=== PATIENT | male | born 1965 | race Caucasian/White ===

== ENCOUNTER 2025-07-29 09:27 | Outpatient (REF) | payer OTHER, SELFPAY ==
[2025-07-29 13:13] LABS: MANUAL DIFF FLAG NO
[2025-07-29 13:17] LABS: Hematocrit 49.9 % (42.0-52.0); Hemoglobin 17.6 g/dl (14.0-18.0); Imm Gran Abs Auto 0.02 X10*3/uL (0.00-0.03); Imm Gran Pct Auto 0.2 % (0.0-0.4); Lymphocytes Absolute Auto 1.7 X10*3/uL (1.2-4.9); Mean Corpuscular HGB Conc 35.3 g/dl (31.0-36.0); Mean Corpuscular Hemoglobin 31.7 pg (27.0-33.0); Mean Corpuscular Volume 89.9 fL (80.0-98.0); NRBC Abs Auto 0.000 X10*3/uL (0.0-0.012); NRBC Pct Auto 0.0 /100WBC (0.0-0.2); Platelet Count 236 X10*3/uL (160-400); Red Blood Count 5.55 X10*6/uL (4.60-5.80); White Blood Count 8.1 X10*3/uL (4.8-10.8)
[2025-07-29 13:34] LABS: Cannabinoid Screen Urine Not Detected (Not Detect)
[2025-07-29 13:38] LABS: Alanine Aminotransferase 33 U/L (0-40); Albumin Level 4.7 g/dL (3.5-5.0); Alkaline Phosphatase 69 U/L (39-117); Anion Gap 15 (12-20); Aspartate Amino Transferase 31 U/L (5-37); Blood Urea Nitrogen 13 mg/dL (9-16); Calcium 10.2 mg/dL (8.4-10.2); Carbon Dioxide 30 mmol/L (22-29); Chloride 99 mmol/L (96-108); Estimated Glomerular Filt Rate > 60; Potassium 3.7 mmol/L (3.3-5.1); Sodium 140 mmol/L (135-145); Total Protein 7.7 g/dL (6.5-8.0)
[2025-07-29 13:52] LABS: Microalbum/Creatinine Ratio Ur 13.3 ug/mg cr (<30)
[2025-07-29 13:55] LABS: PSA,Total (Free>4and<10) 0.70 ng/mL (0.00-4.00)
== END 2025-07-29 09:28 | disposition home or self-care (01) ==
LOC: HO.10HDL 09:27
PROVIDERS: PCP Internal Medicine; Visit Provider Internal Medicine
DX: M25.512 Pain in left shoulder (principal); G89.29 Other chronic pain; I10 Essential (primary) hypertension; R73.01 Impaired fasting glucose; B00.9 Herpesviral infection, unspecified; Z12.5 Encounter for screening for malignant neoplasm of prostate; Z79.899 Other long term (current) drug therapy
CPT/HCPCS: 36415; 80053; 80307; 82043; 82306; 82570; 83036; 83721; 84153; 84443; 85025; 96127; 99212

== ENCOUNTER 2025-07-29 09:27 | Outpatient (AMB) | payer OTHER, SELFPAY ==
--- NOTE | 2025-07-29 09:30 | A.OFFPC_ITS ---
Vital Signs 07/29/25 09:31 07/29/25 09:40 Height 5 ft 9.75 in Weight 203 lb BMI 29.3 BP 130/90 H 124/78 Blood Pressure Location Rt brachial Lt brachial Position Sitting Sitting Respiration 16 Pulse 93 Pulse Source Pulse Oximeter Temp 97.3 F Temp Source Temporal Artery Scan Pulse Oximetry (%) 97 Oxygen Delivery Method Room Air Intake Visit Reasons: establish care here. Litigation Counsel Required: No Accompanied by: Self / Same As Patient Allergies naproxen (From Naprosyn) Adverse Reaction (Intermediate, Verified 07/29/25 09:30) Hives Medication List - Last Reconciled 07/29/25 by Lashell Pretty MD amlodipine 10 mg PO DAILY atenolol 50 mg PO DAILY gabapentin 1,200 mg PO TID indapamide 2.5 mg PO QAM mupirocin 2% topical PRN nortriptyline 25 - 50 mg PO BEDTIME omeprazole 40 mg PO DAILY oxycodone 5 mg PO TID PRN trazodone 100 mg PO BEDTIME PRN valacyclovir 2,000 mg PO Q12H PRN Tobacco use date assessed: 07/29/25 Dental Screening Dental Screen Date: 07/29/25 Did you have a dental visit in the last 12 months?: Yes Did you have a dental problem in the last 6 months where you did not have access to dental care?: No Was dental information given to patient?: Patient has dentist HPI HPI Comments History of Present Illness Details The patient is a 60 year old male presenting to [facility] and for medication management, Left Shoulder Pain: The patient reports worsening left shoulder pain that has become severe enough to disrupt his sleep. He describes the pain as sharp and stabbing and notes a very limited range of motion, being unable to elevate his left arm to 90 degrees without support. Prior treatment with injections is no longer effective. He is scheduled for left shoulder surgery with Dr. Juan De on September 19 at [facility]. Chronic Pain Management: The patient is on a chronic pain management regimen that includes gabapentin, nortriptyline, and oxycodone. He signed a new pain management contract during the visit. Hypertension/Impaired fasting glucose: The patient has a history of hypertension managed with amlodipine 10 mg, atenolol 50 mg, and indapamide 2.5 mg daily. His diastolic blood pressure was noted to be elevated at the beginning of the visit. Normalized at end of visit. Due for repeat a1c. 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 He describes the lesions as staying under the skin in the same location and resolving within three days of taking valacyclovir. Medications Include: - Amlodipine 10 mg once daily for blood pressure - Atenolol 50 mg once daily for blood pr essure - Indapamide 2.5 mg once daily for blood pressure - Gabapentin 1200 mg three times a day - Nortriptyline 50 mg (two 25 mg tablets ) at bedtime for pain, sleep, and mood - Omeprazole 40 mg once daily, taken as needed (twice a week), for acid reflux - Oxycodone 5mg one tablet three times p er day for pain - Trazodone 100 mg at bedtime as needed for sleep - Valacyclovir for cold sores Social History: - The patient is . [facility] Medical History (Updated 07/29/25 @ 22:19 by Lashell Pretty MD) Left shoulder pain Therapeutic drug monitoring PTSD (post-traumatic stress disorder) Insomnia Osteoarthritis Lumbar radiculopathy Cervical radiculopathy Primary hypertension Impaired fasting glucose Surgical History (Updated 07/29/25 @ 07:47 by Lashell Pretty MD) History of back surgery H/O knee surgery History of tonsillectomy History of colonoscopy (~08/16/24) Family History (Updated 07/29/25 @ 07:49 by Lashell Pretty MD) Other Diabetes mellitus Esophageal cancer FH: stomach cancer Mixed hyperlipidemia Osteoarthritis Primary hypertension Stroke Social History Housing: [place] Patient Tobacco Use Status: Former Tobacco user Years Smoked: 40 years e-Cigarette/Vaping Use: Never Used service: No Current occupational status: employed Current occupation: [employer] Questionnaire PHQ-9 Over the last 2 weeks, how often have you been bothered by any of the following problems? 1. Little interest or pleasure in doing things: not at all 2. Feeling down, depressed, or hopeless: not at all 3. Trouble falling or staying asleep, or sleeping too much: nearly every day 4. Feeling tired or having little energy: several days 5. Poor appetite or overeating: more than half the days 6. Feeling bad about yourself - or that you are a failure or have let yourself or your family down: not at all 7. Trouble concentrating on things, such as reading the newspaper or watching television: not at all 8. Moving or speaking so slowly that other people could have noticed. Or the opposite - being so fidgety or restless that you have been moving around a lot more than usual: not at all 9. Thoughts that you would be better off or of hurting yourself in some way: not at all Total score: 6 Depression Screening Interpretation: Positive Depression Screening Follow-up: Existing condition Depression Screening Done: Yes 46200 - PHQ-9 Billing: Yes Source: Developed by Drs. Vinod Jenkins, Jody Martinez, Yash Marie and colleagues, with an educational vale from [employer]. AUDIT C Alcohol Use Questionnaire (AUDIT-C) 1. How often do you have a drink containing alcohol?: Never 3. How often do you have six or more drinks on one occasion?: Never Total Score: 0 Review of Systems Narrative Review of Systems - Constitutional: Reports difficulty sleeping due to shoulder pain. - Respiratory: Denies breathing problems or wheezing. - Gastrointestinal: Reports acid reflux, managed with as-needed medication. - Musculoskeletal: Reports severe, sharp, stabbing pain in the left shoulder with significantly limited range of motion. - Integumentary: Reports recurrent, non-erupting cold sores triggered by stress. Physical exam (Primary Care) Vital Signs: Last Vital Signs Temp 97.3 F 07/29/25 09:31 Pulse 93 07/29/25 09:31 Resp 16 07/29/25 09:31 BP 130/90 H 07/29/25 09:31 Pulse Ox 97 07/29/25 09:31 Oxygen Delivery Method Room Air 07/29/25 09:31 BMI result Body Mass Index 29.3 Tobacco/Smoking Status: Tobacco use Status Tobacco use date assessed 07/29/25 07/29/25 09:39 Patient Tobacco Use Status Former Tobacco user 07/29/25 09:39 e-Cigarette/Vaping Use Never Used 07/29/25 09:39 PHQ-9: PHQ-9 Score PHQ-9: Total score 6 07/29/25 22:18 Depression Screening Interpretation: Positive Depression Screening Follow-up: Existing condition Narrative Physical Exam - Vitals: Repeat blood pressure was 124/78 mmHg. - Gen: NAD - Cardiovascular: Normal rate and rhythm with a soft murmur. - Respiratory: Lungs are clear to auscultation bilaterally. - Abdomen: Soft with normal bowel sounds. - Musculoskeletal: Severely limited active and passive range of motion of the left shoulder Coding Level of Care Code Est Pt Level 4 (62971) Add On Problem Visit Only Diagnoses Primary hypertension I10 Impaired fasting glucose R73.01 Chronic left shoulder pain M25.512; G89.29 Chronicity: chronic Additional Codes PHQ-9 - 64870 - PHQ-9 Billing: Yes ([id number]) Assessment & Plan Assessment & Plan (1) Primary hypertension: Code(s): I10 - Essential (primary) hypertension Category: Medical (2) Impaired fasting glucose: Code(s): R73.01 - Impaired fasting glucose Category: Medical (3) Left shoulder pain: Code(s): M25.512 - Pain in left shoulder Category: Medical Qualifiers: Chronicity: chronic Qualified Code(s): M25.512 - Pain in left shoulder; G89.29 - Other chronic pain Plan Assessment and Plan 1. Left Shoulder Pain - The patient has severe, chronic left shoulder pain with markedly limited range of motion, which has failed conservative measures including injections. - He is scheduled for surgery on September 19. - I will request consult notes from his surgeon - His post-operative pain will be managed by the surgeon. 2. Chronic Pain Management - The patient is on chronic opioid therapy. - He has signed a new pain management contract. - A urine drug screen was ordered today. - I will send his prescription refills, including oxycodone, to be filled on the after reviewing the results. 3. Essential Hypertension - The patient's blood pressure was initially elevated with a diastolic of 90, but improved to 124/78 mmHg on recheck. - He will continue his current regimen of amlodipine, atenolol, and indapamide. 4. Herpes Simplex - He reports stress-induced outbreaks that respond well to valacyclovir. 5. Health Maintenance/Pre-operative Clearance - Ordered non-fasting labs including a hemoglobin A1c for diabetes screening. - The patient has a follow-up visit on August 26 for pre-operative clearance. Plan - Request consult notes from for surgeon for preoperative clearance. - The patient signed a new pain management contract. - Ordered a urine drug screen and non-fasting labs, including a hemoglobin A1c. - Will refill medications, including oxycodone for pickup on the August 02, pending review of the urine drug screen results. - Provided a refill for valacyclovir. - The patient will follow up on the for his pre-operative appointment. - Educated the patient to avoid ibuprofen due to his allergy to naproxen and to inform his surgeon. Patient Instructions - Please go to the lab today for a urine test and blood work. - Your prescription refills will be sent to your pharmacy to be ready on August 02, after we get your lab results. - You have an appointment back in our office on the for your pre-surgery checkup. - Your shoulder surgery is on September 19. After surgery, your surgeon will manage your pain medicine until you are stable. - Do not take ibuprofen (Advil, Motrin) because you have an allergy to a similar medication, naproxen, which causes hives. Make sure to tell your surgeon about this allergy. Orders: Orders LDL Cholesterol Direct Today I10 - Essential (primary) hypertension, R73.01 - Impaired fasting glucose, Z51.81 - Encounter for therapeutic drug level monitoring TSH reflex Free T4 Today I10 - Essential (primary) hypertension, R73.01 - Impaired fasting glucose, Z51.81 - Encounter for therapeutic drug level monitoring Microalbumin, Random (w Creat) Today I10 - Essential (primary) hypertension, R73.01 - Impaired fasting glucose, Z51.81 - Encounter for therapeutic drug level monitoring PSA,Total (Free>4and<10) Today I10 - Essential (primary) hypertension, R73.01 - Impaired fasting glucose, Z51.81 - Encounter for therapeutic drug level monitoring Opiate Screen Urine Today I10 - Essential (primary) hypertension, R73.01 - Impaired fasting glucose, Z51.81 - Encounter for therapeutic drug level monitoring Hemoglobin A1c Today I10 - Essential (primary) hypertension, R73.01 - Impaired fasting glucose, Z51.81 - Encounter for therapeutic drug level monitoring Cannabinoid Screen Urine Today I10 - Essential (primary) hypertension, R73.01 - Impaired fasting glucose, Z51.81 - Encounter for therapeutic drug level monitoring Cocaine Screen Urine Today I10 - Essential (primary) hypertension, R73.01 - Impaired fasting glucose, Z51.81 - Encounter for therapeutic drug level monitoring Complete Blood Count Auto Diff Today I10 - Essential (primary) hypertension, R73.01 - Impaired fasting glucose, Z51.81 - Encounter for therapeutic drug level monitoring Comprehensive Met. Panel Today I10 - Essential (primary) hypertension, R73.01 - Impaired fasting glucose, Z51.81 - Encounter for therapeutic drug level monitoring Vitamin D 25-OH Total Today I10 - Essential (primary) hypertension, R73.01 - Impaired fasting glucose, Z51.81 - Encounter for therapeutic drug level monitoring Medications: New valacyclovir 2,000 mg (2 x 1 gram) PO BID PRN 4 tabs 11RF cold sores
[2025-07-29 09:31] VITALS: BP 130/90; PULSE 93; RESP 16; TEMP 36.3; O2SAT 97; BMI 29.3
[2025-07-29 09:40] VITALS: BP 124/78
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
== END 2025-07-29 10:19 | disposition home or self-care (01) ==
LOC: HO.HMCHD 09:27
PROVIDERS: PCP Internal Medicine; Visit Provider Internal Medicine
DX: I10 Essential (primary) hypertension (principal); R73.01 Impaired fasting glucose; M25.512 Pain in left shoulder; G89.29 Other chronic pain